=== PATIENT | female | born 1980 | race Hispanic/Latino ===

== ENCOUNTER 2017-11-10 10:53 | Outpatient (CLI) | payer MEDICAID ==
[2017-11-10 12:03] LABS: Hematocrit 37.3 % (30.3-42.9); Hemoglobin 12.2 gm/dl (10.1-14.3); Mean Corpuscular HGB Conc 33 % (30-34); Mean Corpuscular Hemoglobin 30 pg (28-32); Mean Corpuscular Volume 92 fl (79-97); Platelet Count 308 K/mm3 (140-440); Red Blood Count 4.03 M/mm3 (3.65-5.03); Red Cell Distribution Width 14.4 % (13.2-15.2)
[2017-11-10 12:20] LABS: Alanine Aminotransferase 11 units/L (7-56); Uric Acid 3.3 mg/dL (3.5-7.6)
[2017-11-10 12:47] LABS: Bacteria,Urine 4+ /HPF (Negative); Mucus,Urine FEW /HPF
[2017-11-10 12:51] VITALS: BP 127/66
[2017-11-10 12:59] LABS: Color,Urine Straw (Yellow)
[2017-11-10 13:00] LABS: Bilirubin,Urine Negative (Negative)
[2017-11-10 13:01] LABS: Blood,Urine Negative (Negative)
[2017-11-10] MEDS ORDERED: LACTATED RINGERS 500 ML IV ONE (13:16)
== END 2017-11-10 13:17 | disposition home or self-care (01) ==
LOC: TRG 10:53
PROVIDERS: ATTEND Obstetrics & Gynecology
DX: O47.03 False labor before 37 completed weeks of gestation, third trimester (principal); Z3A.35 35 weeks gestation of pregnancy; Z87.891 Personal history of nicotine dependence
CPT/HCPCS: 36415; 59025; 81001; 82565; 83615; 84450; 84460; 84550; 85027

== ENCOUNTER 2017-11-11 14:23 | Outpatient (CLI) | payer MEDICAID ==
[2017-11-11 16:23] LABS: Creatinine,Urine 130.4 mg/dL (0.1-20.0)
== END 2017-11-11 15:33 | disposition home or self-care (01) ==
LOC: TRG 14:23
PROVIDERS: ATTEND Obstetrics & Gynecology
DX: O47.03 False labor before 37 completed weeks of gestation, third trimester (principal); Z3A.35 35 weeks gestation of pregnancy; Z87.891 Personal history of nicotine dependence
CPT/HCPCS: 82570; 84156